=== PATIENT | female | born 1985 | race African-American/Black ===

== ENCOUNTER 2021-01-30 12:33 | Outpatient (CLI) | payer SELFPAY ==
[~2021-01-30] VITALS: Ht 170.2 cm; Wt 72.5 kg
[~2021-01-30 12:33] MED LIST: AMOX500C2 PO; CODE-54 PO; FERR-57 PO; Ibuprofen PO; PREN1TAB39 PO
[2021-01-30 12:39] VITALS: BP 115/74
[2021-01-30 12:48] VITALS: BP 115/74
[2021-01-30 13:09] LABS: BILIRUBIN,URINE NEGATIVE (NEGATIVE); CLARITY,URINE CLEAR; COLOR,URINE YELLOW; GLUCOSE, URINE (UA) NEGATIVE (NEGATIVE); KETONES,URINE NEGATIVE (NEGATIVE); LEUKOCYTE ESTERASE ,URINE 3+ (NEGATIVE); NITRITE,URINE NEGATIVE (NEGATIVE); PROTEIN,URINE 2+ (NEGATIVE)
[2021-01-30] MEDS ORDERED: ACET-2267 PO (13:12)
[2021-01-30] MEDS ORDERED: PREN1TAB79 PO (13:12)
[2021-01-30 13:22] LABS: AMPHETAMINE SCREEN, URINE NEGATIVE (NEGATIVE); BARBITURATE SCREEN URINE NEGATIVE (NEGATIVE); BENZODIAZEPINES SCREEN URINE NEGATIVE (NEGATIVE); CANNABINOID SCREEN, URINE POSITIVE (NEGATIVE); COCAINE SCREEN URINE NEGATIVE (NEGATIVE); METHADONE STAT NEGATIVE (NEGATIVE); METHAMPHETAMINE SCREEN URINE S NEGATIVE (NEGATIVE); OPIATE SCREEN URINE NEGATIVE (NEGATIVE); OXYCODONE STAT NEGATIVE (NEGATIVE); PROPOXYPHENE STAT NEGATIVE (NEGATIVE); TRICYCLIC ANTIDEPRESSANTS SCRE NEGATIVE (NEGATIVE)
[2021-01-30 13:30] LABS: BACTERIA,URINE MODERATE /HPF; TRICHOMONAS,URINE FEW /HPF; WBC,URINE 25-50 /HPF
[2021-01-30] MEDS ORDERED: METR500T PO (13:44)
[2021-01-30] MEDS ORDERED: CEPH500T PO (13:44)
--- NOTE | 2021-01-31 07:30 | Physician Query-Final Dx ---
Clinic Account Progress/Dx Physician Query: Please give diagnosis Please include # weeks gestation Date of Service January 30, 2021 at 12:33 JASON CHAVEZ January 31, 2021 07:30
== END 2021-01-30 13:55 | disposition home or self-care (01) ==
LOC: LDRP 12:33 → WSo 12:33
PROVIDERS: ATTEND Family Medicine
DX: O26.893 Other specified pregnancy related conditions, third trimester (principal); Z3A.34 34 weeks gestation of pregnancy
CPT/HCPCS: 80306; 81000; 87077; 87088; 87186; 99213

== ENCOUNTER 2021-03-08 08:59 | Inpatient (IN) | payer OTHER ==
[2021-03-08] VITALS (12 sets, daily range): BP systolic 97–155; BP diastolic 50–83
[~2021-03-08 08:59] MED LIST changes: +ACET-2267 PO; +CEPH500T PO; +METR500T PO; +PREN1TAB79 PO
[2021-03-08] MEDS ORDERED: MINERAL OIL CONCENTRATE 99.9% 15 ML UDC TOP PRN (09:30)
[2021-03-08] MEDS ORDERED: OXYTOCIN PRE-MIX DRIP 500 ML IV ONE ×2 (09:30→10:20)
[2021-03-08] MEDS ORDERED: D5 LR IV SOLUTION 1,000 ML IV SCH (09:30)
--- NOTE | 2021-03-08 09:30 | History & Physical-OB ---
OB - Chief Complaint & HPI Date/Time Date of Admission: Date of Admission: Date seen by a Provider: Mar 08, 2021 Time Seen by a Provider: 09:27 Chief Complaint/History OB-Reason for Admission/Chief: Onset of Labor Hx : 7 Hx Para: [id number] Expected Date of Delivery: Mar 08, 2021 Gestational Age in Weeks: 40 Gestational Age in Days: 0 History of Labs B+, antibody neg, RI. HIV/HepB/RPR NR/Hep C neg. GC/chlamydia neg. Other 35 yo at 40w0d presented with contractions since this morning. Had been lost to follow up for Ob care, had two visits, one in first and one in second trimester. Allergies and Home Medications Allergies Coded Allergies: No Known Drug Allergies (Verified , 06/28/08) Patient Home Medication List Home Medication List Reviewed: Yes OB - History Hx of Present Care: Yes (2 visits only) Information Induced Hypertension: No Maternal Gestational Diabetes: No Hemorrhage: No Obstetrical History Hx : 7 Hx Para: 6 Hx # Term Pregnancies: 6 Hx # Pregnancies: 0 Number of Living Children: 6 Hx Termination: No Hx Multiple Gestation: No Hx Ectopic : No Hx Stillbirth: No Hx Complication: No Hx Induced Hypertens: No Hx Maternal Gestational Diabet: No Hx Hemorrhage: No Delivery History Hx Dystocia: No Hx Forceps Assisted Delivery: No Hx Vacuum Extraction Assisted: No Hx Placenta Abnormality: No Hx Distress: No Hx Large For Gestational Age I: No Hx Small for Gestational Age I: No Hx Section: No Hx Vaginal Delivery Post C-Sec: No Hx Blood Disorders: No Adverse Rxn to Tranfusion: No Patient Past Medical History PMHx: Substance abuse Social History/Family History 2nd Hand Smoke Exposure: Yes Immunizations Hepatitis A: No Hepatitis B: No Tetanus Booster (TDap): Unknown Rubella: immune RPR/VDRL: Negative GBS Status: Unknown HBsAG: Negative OB - Admission Exam Physical Exam Cervical Dilatation: 9cm Effacement: 100% Station: 0 Membranes: Intact Decelerations: No Decelerations Contractions on Admission: < 5 Minutes Apart OB - Assessment/Plan/Diagnosis Assessment Assessment: active labor Admission Dx Active labor at full term Limited care GBS unknown Admission Status: Inpatient Order (span 2 midnights) Reason for Inpatient Admission: labor and delivery and course Plan Plan: Expectant Management SAUL OZUNA MD Mar 08, 2021 09:30
[2021-03-08 09:39] LABS: BILIRUBIN,URINE NEGATIVE (NEGATIVE); CLARITY,URINE CLEAR; COLOR,URINE YELLOW; GLUCOSE, URINE (UA) NEGATIVE (NEGATIVE); KETONES,URINE NEGATIVE (NEGATIVE); LEUKOCYTE ESTERASE ,URINE 2+ (NEGATIVE); NITRITE,URINE NEGATIVE (NEGATIVE); PH,URINE 6.5 (5-9); PROTEIN,URINE NEGATIVE (NEGATIVE)
[2021-03-08 09:49] LABS: BACTERIA,URINE MODERATE /HPF; RBC,URINE 0-2 /HPF; WBC,URINE 25-50 /HPF
[2021-03-08 10:11] LABS: AMPHETAMINE SCREEN, URINE NEGATIVE (NEGATIVE); BARBITURATE SCREEN URINE NEGATIVE (NEGATIVE); BENZODIAZEPINES SCREEN URINE NEGATIVE (NEGATIVE); CANNABINOID SCREEN, URINE POSITIVE (NEGATIVE); COCAINE SCREEN URINE NEGATIVE (NEGATIVE); METHADONE STAT NEGATIVE (NEGATIVE); METHAMPHETAMINE SCREEN URINE S NEGATIVE (NEGATIVE); OPIATE SCREEN URINE NEGATIVE (NEGATIVE); OXYCODONE STAT NEGATIVE (NEGATIVE); PROPOXYPHENE STAT NEGATIVE (NEGATIVE); TRICYCLIC ANTIDEPRESSANTS SCRE NEGATIVE (NEGATIVE)
[2021-03-08 10:15] LABS: BASOPHILS # (AUTO) 0.1 10^3/uL (0.0-0.1); BASOPHILS % (AUTO) 1 % (0-10); EOSINOPHILS # (AUTO) 0.2 10^3/uL (0.0-0.3); EOSINOPHILS % (AUTO) 1 % (0-10); HEMATOCRIT 37 % (35-52); HEMOGLOBIN 11.8 g/dL (11.5-16.0); LYMPHOCYTES # (AUTO) 3.2 10^3/uL (1.0-4.0); LYMPHOCYTES % (AUTO) 23 % (12-44); MEAN CORPUSCULAR HEMOGLOBIN 29 pg (25-34); MEAN CORPUSCULAR HGB CONC 32 g/dL (32-36); MEAN CORPUSCULAR VOLUME 90 fL (80-99); MEAN PLATELET VOLUME 10.3 fL (9.0-12.2); MONOCYTES # (AUTO) 0.7 10^3/uL (0.0-1.0); MONOCYTES % (AUTO) 5 % (0-12); NEUTROPHILS # (AUTO) 10.1 10^3/uL (1.8-7.8); NEUTROPHILS % (AUTO) 70 % (42-75); PLATELET COUNT 381 10^3/uL (130-400); WHITE BLOOD COUNT 14.4 10^3/uL (4.3-11.0)
--- NOTE | 2021-03-08 10:27 | OB Labor & Delivery Record ---
Vag Delivery Note Vag Delivery Note Date of Delivery: 03/08/21 Preoperative Diagnosis: Zofia Luis is a (35 /Para 7 / 6,Gestational Age (wks)40with 0 days Postoperative Diagnosis: Same Surgeon: SAUL OZUNA Digital Media Sales Consultant: Bradford Chiu, MS2 Anesthesia: None Delivery Type: Findings: Viable male , apgars 8/9, weight 7#10 Lacerations: left periurethral Intact placenta with 3 vessel cord. Body cord noted, No nuchal cord or shoulder dystocia Estimated Blood Loss: 350 ml Complications: None Condition: Stable Description of Procedure: The patient is a 35 year old female who presented in active labor. She was admitted and informed consent was obtained. Her labor course was remarkable for being fully dilated on arrival. She progressed to complete dilatation and began to push. She was then set up for delivery. The infant's head was delivered atraumatically in the YESENIA position. The shoulders and remainder of the 's body were then delivered without difficulty. Upon delivery, the infant was vigorous and placed on maternal abdomen. After a delay, the cord was doubly clamped and cut and the infant was handed off to the pediatric staff. An intact placenta with 3-vessel cord delivered via Kamini and there was found to be minimal bleeding.~ Vigorous fundal massage was performed and the fundus was found to be firm. IV oxytocin was given. Examination of the vagina and perineum revealed a left periurethral laceration hemostatic and well approximated, not requiring repair. Following the delivery, sponge, instrument and needle counts were correct. Mom and baby were both in stable condition in the labor suite. Vitals - Labs Labs Laboratory Tests 03/08/21 09:35: Urine Color YELLOW, Urine Clarity CLEAR, Urine pH 6.5, Urine Specific [place] 1.020, Urine Protein NEGATIVE, Urine Glucose (UA) NEGATIVE, Urine Ketones NEGATIVE, Urine Nitrite NEGATIVE, Urine Bilirubin NEGATIVE, Urine Urobilinogen 0.2, Urine Leukocyte Esterase 2+H, Urine RBC (Auto) 1+H, Urine RBC 0-2, Urine WBC 25-50H, Urine Squamous Epithelial Cells 5-10, Urine Crystals NONE, Urine Bacteria MODERATEH, Urine Casts NONE, Urine Mucus NEGATIVE, Urine Culture Indicated YES, Urine Opiates Screen NEGATIVE, Urine Oxycodone Screen NEGATIVE, Urine Methadone Screen NEGATIVE, Urine Propoxyphene Screen NEGATIVE, Urine Barbiturates Screen NEGATIVE, Ur Tricyclic Antidepressants Screen NEGATIVE, Urine Phencyclidine Screen NEGATIVE, Urine Amphetamines Screen NEGATIVE, Urine Methamphetamines Screen NEGATIVE, Urine Benzodiazepines Screen NEGATIVE, Urine Cocaine Screen NEGATIVE, Urine Cannabinoids Screen POSITIVE 03/08/21 10:06: White Blood Count 14.4H, Red Blood Count 4.11, Hemoglobin 11.8, Hematocrit 37, Mean Corpuscular Volume 90, Mean Corpuscular Hemoglobin 29, Mean Corpuscular Hemoglobin Concent 32, Red Cell Distribution Width 15.7H, Platelet Count 381, Mean Platelet Volume 10.3, Immature Granulocyte % (Auto) 1, Neutrophils (%) (Auto) 70, Lymphocytes (%) (Auto) 23, Monocytes (%) (Auto) 5, Eosinophils (%) (Auto) 1, Basophils (%) (Auto) 1, Neutrophils # (Auto) 10.1H, Lymphocytes # (Auto) 3.2, Monocytes # (Auto) 0.7, Eosinophils # (Auto) 0.2, Basophils # (Auto) 0.1, Immature Granulocyte # (Auto) 0.1 SAUL OZUNA MD Mar 08, 2021 10:27
[2021-03-08 11:00] LABS: ANISOCYTOSIS SLIGHT; BAND NEUTROPHILS 3 %; BASOPHILS % (MANUAL) 0 %; EOSINOPHILS % (MANUAL) 0 %; LYMPHOCYTES % (MANUAL) 23 %; MONOCYTES % (MANUAL) 4 %; NEUTROPHILS % (MANUAL) 70 %
[2021-03-08] MEDS ORDERED: OXYTOCIN PRE-MIX DRIP 500 ML IV SCH (11:15)
[2021-03-08] MEDS ORDERED: MEASLES,MUMPS,RUBELLA 1 EA INJ SQ ONE (11:15)
[2021-03-08] MEDS ORDERED: TETANUS,DIPTH,PERTUSS P/F (BOOSTRIX) 0.5 ML VIAL IM ONE (11:15)
[2021-03-08] MEDS ORDERED: WITCH HAZEL(TUCKS) 40 EA JAR TOP PRN (11:15)
[2021-03-08] MEDS ORDERED: BENZOCAINE/MENTHOL (DERMOPLAST) 56 ML CAN TP PRN (11:15)
[2021-03-08] MEDS: IBUPROFEN 600 MG (MOTRIN) TAB PO SCH ×2 (13:27→21:21)
[2021-03-08] MEDS ORDERED: CATHETER FLUSH 10 ML SYR IV SCH (14:00)
[2021-03-08] MEDS: CATHETER FLUSH 10 ML SYR IV SCH ×2 (14:56→22:00)
[2021-03-08] MEDS: DOCUSATE SODIUM 100 MG (COLACE) CAP PO SCH (21:21)
[2021-03-09] MEDS: IBUPROFEN 600 MG (MOTRIN) TAB PO SCH ×4 (02:50→21:03)
[2021-03-09 03:00] VITALS: BP 119/66
[2021-03-09] MEDS: CATHETER FLUSH 10 ML SYR IV SCH (06:17)
[2021-03-09 06:37] LABS: BASOPHILS # (AUTO) 0.1 10^3/uL (0.0-0.1); BASOPHILS % (AUTO) 1 % (0-10); EOSINOPHILS # (AUTO) 0.3 10^3/uL (0.0-0.3); EOSINOPHILS % (AUTO) 2 % (0-10); HEMATOCRIT 34 % (35-52); HEMOGLOBIN 11.1 g/dL (11.5-16.0); LYMPHOCYTES # (AUTO) 4.1 10^3/uL (1.0-4.0); LYMPHOCYTES % (AUTO) 32 % (12-44); MEAN CORPUSCULAR HEMOGLOBIN 29 pg (25-34); MEAN CORPUSCULAR HGB CONC 32 g/dL (32-36); MEAN CORPUSCULAR VOLUME 91 fL (80-99); MEAN PLATELET VOLUME 10.5 fL (9.0-12.2); MONOCYTES # (AUTO) 0.7 10^3/uL (0.0-1.0); MONOCYTES % (AUTO) 5 % (0-12); NEUTROPHILS # (AUTO) 7.7 10^3/uL (1.8-7.8); NEUTROPHILS % (AUTO) 59 % (42-75); PLATELET COUNT 398 10^3/uL (130-400); WHITE BLOOD COUNT 12.9 10^3/uL (4.3-11.0)
[2021-03-09 06:59] LABS: EOSINOPHILS % (MANUAL) 3 %; LYMPHOCYTES % (MANUAL) 27 %; MONOCYTES % (MANUAL) 4 %; NEUTROPHILS % (MANUAL) 66 %
[2021-03-09 07:00] LABS: RBC MORPH NORMAL
[2021-03-09] MEDS ORDERED: PNV1TABL67 PO (07:03)
[2021-03-09] MEDS ORDERED: IBUP-844 PO (07:03)
[2021-03-09] MEDS ORDERED: AMOX500C2 PO (07:03)
[2021-03-09 08:32] VITALS: BP 116/57
[2021-03-09] MEDS: PRENATAL VITAMIN 1 EA TAB PO SCH (08:33)
[2021-03-09] MEDS: DOCUSATE SODIUM 100 MG (COLACE) CAP PO SCH ×2 (08:33→21:03)
--- NOTE | 2021-03-09 09:13 | Discharge Summary ---
Discharge Summary Hospital Course Hospital Course Date of Admission: Mar 08, 2021 at 09:15 Admission Diagnosis : Family Physician/Provider: Saul Blum MD Date of Discharge: 03/09/21 Discharge Diagnosis: s/p spontaneous vaginal delivery limited care Hospital Course: Pt admitted in active labor at complete dilation on arrival, had uncomplicated delivery and course. Social work consulted due to limited care and history of substance use. Labs and Pending Lab Test: Laboratory Tests 03/08/21 09:35: Urine Color YELLOW, Urine Clarity CLEAR, Urine pH 6.5, Urine Specific [place] 1 .020, Urine Protein NEGATIVE, Urine Glucose (UA) NEGATIVE, Urine Ketones NEGATIVE, Urine Nitrite NEGATIVE, Urine Bilirubin NEGATIVE, Urine Urobilinogen 0.2, Urine Leukocyte Esterase 2+H, Urine RBC (Auto) 1+H, Urine RBC 0-2, Urine WBC 25-50H, Urine Squamous Epithelial Cells 5-10, Urine Crystals NONE, Urine [place] MODERATEH, Urine Casts NONE, Urine Mucus NEGATIVE, Urine Culture Indicated YES, Urine Opiates Screen NEGATIVE, Urine Oxycodone Screen NEGATIVE, Urine Methadone Screen NEGATIVE, Urine Propoxyphene Screen NEGATIVE, Urine Barbiturates Screen NEGATIVE, Ur Tricyclic Antidepressants Screen NEGATIVE, Urine Phencyclidine Screen NEGATIVE, Urine Amphetamines Screen NEGATIVE, Urine Methamphetamines Screen NEGATIVE, Urine Benzodiazepines Screen NEGATIVE, Urine Cocaine Screen NEGATIVE, Urine Cannabinoids Screen POSITIVEH 03/08/21 10:06: White Blood Count 14.4H, Red Blood Count 4.11, Hemoglobin 11.8, Hematocrit 37, Mean Corpuscular Volume 90, Mean Corpuscular Hemoglobin 29, Mean Corpuscular Hemoglobin Concent 32, Red Cell Distribution Width 15.7H, Platelet Count 381, Mean Platelet Volume 10.3, Immature Granulocyte % (Auto) 1, Neutrophils (%) (Auto) 70, Lymphocytes (%) (Auto) 23, Monocytes (%) (Auto) 5, Eosinophils (%) (Auto) 1, Basophils (%) (Auto) 1, Neutrophils # (Auto) 10.1H, Lymphocytes # (Auto) 3.2, Monocytes # (Auto) 0.7, Eosinophils # (Auto) 0.2, Basophils # (Auto) 0.1, Immature Granulocyte # (Auto) 0.1, Neutrophils % (Manual) 70, Lymphocytes % (Manual) 23, Monocytes % (Manual) 4, Eosinophils % (Manual) 0, Basophils % (Manual) 0, Band Neutrophils 3, Anisocytosis SLIGHT Home Meds Active Amoxicillin 500 Mg Capsule 500 Mg PO BID Pnv Plus Multivit Tab (Pnv with Ca,No.72/Iron/FA) 1 Each Tablet 1 Ea PO DAILY@0700 Ibu (Ibuprofen) 600 Mg Tablet 600 Mg PO Q6HR PRN Assessment/Pt DC Instructions Follow up with Dr. Blum in 6 weeks for visit. Discharge Diet: No Restrictions Activity as Tolerated: Yes (avoid strenuous activity x 6 weeks) Discharge Physical Examination Allergies: Coded Allergies: No Known Drug Allergies (Verified , 06/28/08) General Appearance: No Apparent Distress, WD/WN Respiratory: Lungs Clear, Normal Breath Sounds Cardiovascular: Regular Rate, Rhythm, No Murmur Gastrointestinal: Other (fundus firm below umbilicus) Extremity: No Pedal Edema Skin: Normal Color, Warm/Dry Neurologic/Psychiatric: Alert, Normal Mood/Affect SAUL BLUM MD Mar 09, 2021 09:13
[2021-03-09 15:00] VITALS: BP 119/59
[2021-03-09 21:00] VITALS: BP 96/57
[2021-03-10] MEDS: IBUPROFEN 600 MG (MOTRIN) TAB PO SCH ×2 (03:08→10:37)
[2021-03-10 03:10] VITALS: BP 110/62
[2021-03-10 07:40] VITALS: BP 118/67
[2021-03-10] MEDS: DOCUSATE SODIUM 100 MG (COLACE) CAP PO SCH (10:37)
[2021-03-10] MEDS: PRENATAL VITAMIN 1 EA TAB PO SCH (10:37)
== END 2021-03-10 13:57 | disposition home or self-care (01) | DRG 807 ==
LOC: WSo 08:59 → LDRP 09:00 → WSo 09:37 → LDRP 13:09
PROVIDERS: ADMIT Family Medicine; ATTEND Family Medicine
PROC: 10E0XZZ Delivery of Products of Conception, External Approach (ICD-10-PCS; principal; 2021-03-08)
DX: O71.82 Other specified trauma to perineum and vulva (principal); Z37.0 Single live birth; Z3A.40 40 weeks gestation of pregnancy
CPT/HCPCS: 36415; 80306; 81000; 85007; 85025; 85027; 86850; 86900; 86901; 87088; 99212